=== PATIENT | female | born 1990 | race Caucasian/White ===

== ENCOUNTER → 2016-09-14 | Outpatient (CLI) | payer BC ==
--- NOTE | 2016-09-14 10:34 | EKG ---
[address] [address] Measurements Intervals [place] Rate: 75 P: 60 AL: 178 QRS: 93 QRSD: 88 T: 17 QT: 381 QTc: 411 Interpretive Statements SINUS RHYTHM BORDERLINE RIGHT AXIS DEVIATION No previous ECG available for comparison Electronically Signed On 09-14-16 16:03:55 MDT by Pradeep Garrison [id number]
[2016-09-14 10:41] LABS: BASOPHILS # (AUTO) 0.03 10*3/UL; BASOPHILS % (AUTO) 0.6 % (0-1); EOSINOPHILS % (AUTO) 3.3 % (0-8); HEMATOCRIT 44.4 % (37.0-47.0); HEMOGLOBIN 15.2 g/dL (12.0-16.0); IMM GRAN % (AUTO) 0 % (0-5); IMM GRAN# (AUTO) 0 10*3/UL; LYMPHOCYTES # (AUTO) 1.55 10*3/uL; LYMPHOCYTES % (AUTO) 32.2 % (10-50); MEAN CORPUSCULAR HEMOGLOBIN 32.4 PG (27-31); MEAN CORPUSCULAR HGB CONC 34.2 g/dL (33-37); MEAN PLATELET VOLUME 10.1 FL (7.4-12.2); MONOCYTES # (AUTO) 0.51 10*3/UL (0.3-0.8); MONOCYTES % (AUTO) 10.6 % (5-15); NEUTROPHILS # (AUTO) 2.57 10*3/UL; NEUTROPHILS % (AUTO) 53.3 % (50-80); RDW COEFFICIENT OF VARIATION 12.1 % (11.5-14.5); RED BLOOD COUNT 4.69 10^6/uL (4.20-5.40); WHITE BLOOD COUNT 4.82 10^3/uL (4.8-10.8)
[2016-09-14 10:44] LABS: PLATELET MORPHOLOGY COMMENT NORMAL MORPHOLOGY (NORM)
[2016-09-14 11:05] LABS: ASPARTATE AMINO TRANSFERASE 39 IU/L (8-39); BILIRUBIN,TOTAL 1.1 mg/dL (0.3-1.2); BLOOD UREA NITROGEN 14 mg/dL (7-22); CALCIUM 9.6 mg/dL (8.7-10.7); CHLORIDE 103 meq/L (98-112); CREATININE 0.7 mg/dL (0.50-1.20); EST GLOMERULAR FILTRATION > 60 (>60 ml/min/1.73m(2)); GLUCOSE 98 mg/dL (78-110); POTASSIUM 4.4 meq/L (3.8-5.2); SODIUM 141 meq/L (135-145); TOTAL PROTEIN 8.2 g/dL (6.1-8.0)
[2016-09-14 11:17] LABS: CREATINE KINASE MB 0.24 NG/ML (0.00-5.00)
--- NOTE | 2016-09-14 11:22 | DI ---
PA /LATERAL CHEST X-RAY, 09/14/2016 10:17 AM : Clinical History: Pleuritic chest pain. Previous Exam: None at this facility. There is no acute soft tissue or bony abnormality. Heart size is normal. Lungs are clear. Mediastinal structures are normal. There are no pulmonary nodules. Reading: Normal chest x-ray.
[2016-09-14 11:34] LABS: TROPONIN I < 0.012 ng/mL (< 0.040)
== END ==
LOC: MOB LAB 10:19
PROVIDERS: ATTEND Physician Assistant
DX: R07.81 Pleurodynia (principal); R06.02 Shortness of breath; R07.9 Chest pain, unspecified
CPT/HCPCS: 36415; 71020; 80053; 82553; 84484; 85025; 85379; 93005; 93010

== ENCOUNTER 2016-11-17 22:52 | Emergency (ER) | payer BC ==
[2016-11-17] MEDS ORDERED: NORMAL SALINE 10 ML SYRINGE FLUSH IVP PRN (23:01)
[2016-11-17] MEDS ORDERED: HYDROcodone-APAP 5 MG -325 MG TABLET PO ONE (23:01)
[2016-11-17] MEDS ORDERED: KETOROLAC 15 MG/1 ML VIAL IVP ONE (23:01)
[2016-11-17] MEDS ORDERED: cefTRIAXone Inj 1 GM in Sodium Chloride 0.9% 100 ML IV ONE (23:02)
[2016-11-17 23:07] VITALS: RESP 18; TEMP 97
[2016-11-17] MEDS ORDERED: Sodium Chloride 0.9% 1,000 ML PRIMARY IV ONE (23:26)
[2016-11-17 23:33] LABS: BASOPHILS # (AUTO) 0.04 10*3/UL; BASOPHILS % (AUTO) 0.5 % (0-1); EOSINOPHILS # (AUTO) 0.27 10*3/UL; EOSINOPHILS % (AUTO) 3.4 % (0-8); HEMATOCRIT 43.9 % (37.0-47.0); MEAN CORPUSCULAR HEMOGLOBIN 32.6 PG (27-31); MEAN CORPUSCULAR HGB CONC 34.2 g/dL (33-37); MEAN CORPUSCULAR VOLUME 95.4 FL (81-99); MEAN PLATELET VOLUME 10.2 FL (7.4-12.2); MONOCYTES # (AUTO) 0.81 10*3/UL (0.3-0.8); MONOCYTES % (AUTO) 10.2 % (5-15); NEUTROPHILS # (AUTO) 4.58 10*3/UL; NEUTROPHILS % (AUTO) 57.8 % (50-80)
[2016-11-17 23:35] LABS: PLATELET MORPHOLOGY COMMENT NORMAL MORPHOLOGY (NORM); RBC MORPHOLOGY COMMENT NORMAL MORPHOLOGY (NORM); WBC MORPHOLOGY COMMENT NORMAL MORPHOLOGY (NORM)
[2016-11-17 23:50] LABS: BUN/CREATININE RATIO 11.42 (6-20); C-REACTIVE PROTEIN 0.6 mg/dL (0.0-0.9); CALCIUM 9.1 mg/dL (8.7-10.7); EST GLOMERULAR FILTRATION > 60 (>60 ml/min/1.73m(2))
[2016-11-18] MEDS ORDERED: HYDROcodone-APAP 5 MG -325 MG TABLET PO SCH (00:15)
--- NOTE | 2016-11-18 00:20 | PDOC ---
Sore Throat/Dental Pain HPI - General Chief Complaint: Nasal/Mouth Problem /Injury Stated Complaint: Dental Pain Date Seen by Provider: 11/17/16 Time Seen by Provider: 22:55 Source: POSITIVE: Patient Exam Limitations: POSITIVE: No limitations, Clinical condition Nurse's Notes Reviewed & Considered: Yes - History of Present Illness Initial Comments: The patient is a 26-year-old female who presents to the emergency room with increased right upper molar pain and swelling. She has been having issues with the right upper molar for the past several days. She saw the dentist yesterday and needs a root canal. She has been referred to an gambreler helper. She was started on clindamycin yesterday. Over the past couple of hours she has noticed increased pain and increased swelling to the referral of her mouth primarily. She denies any fevers or chills, difficulty swallowing or any other associated complaints. - Patient Home Medications Home Medications: Home Medications Esomeprazole Magnesium [Nexium] 40 mg PO DAILY #30 cap 02/28/16 Valacyclovir HCl [Valtrex] 2,000 mg PO BID #16 tab 02/28/16 Albuterol Sulfate [Proair Hfa] 1 - 2 puff INH Q4-6H #1 inhaler 09/14/16 Clindamycin HCl 300 mg PO TID 11/17/16 HYDROcodone/APAP 5/325 Tab [[place] 5/325 Tab] 1 - 2 each PO Q6H PRN #15 tablet - Patient Allergies Allergies/Adverse Reactions: Allergies Allergy/AdvReac Type Severity Reaction Status Date / Time Penicillins AdvReac HIVES Verified 11/17/16 22:57 Sulfa (Sulfonamide AdvReac HIVES Verified 11/17/16 22:57 Antibiotics) Past Medical History - heen HEENT History: Denies History Cardiovascular History: Denies History Respiratory History: Denies History Gastrointestinal History: Denies History Genitourinary History: Kidney Stones Endocrine History: Denies History Musculoskeletal History: Denies History Prosthesis or Implant: No Neurological History: Denies History Blood Disorders: Denies History Psychiatric History: Denies History Female Reproductive History: Denies History Obstetrical History: Denies History Cancer History: Denies History In Past Year Been Physically Harmed or Verbally Threatened: No History of MDRO: No Tobacco Use: Never Smoker Alcohol Use: Rarely Substance Use Type: None Previous Surgical History: Yes Type / Date of Surgery: appendectomy. kidney stones removed Significant Family History: No pertinent family hx Past Medical History Reviewed: Reviewed - No Changes ROS - Limitations ROS Limitations: No Limitations Constitution: REPORTS: Chills, Fever Cardiovascular: REPORTS: Denies Cardiac Symptoms Respiratory: REPORTS: Denies Resp Symptoms Neurological: REPORTS: Denies Neuro Symptoms Sore Throat/Dental Pain Exam - General Appearance General Appearance: REPORTS: Alert, Cooperative, No Acute Distress - HEENT Head / Face: POSITIVE: No Facial Swelling Eyes: POSITIVE: Inspection Normal Ears: POSITIVE: Ears Normal Inspection Nose: POSITIVE: Inspection Normal Neck: POSITIVE: Supple. NEGATIVE: Lymphadenopathy Dental: POSITIVE: Other (She has a right upper molar that has some surrounding erythema and swelling, the swelling does extend to the referral of her mouth) - Respiratory Respiratory: REPORTS: No Respiratory Distress, Breath Sounds Normal - Cardiovascular Cardiovascular: REPORTS: Regular Rate and Rhythm, Heart Sounds Normal Sore Throat/Dental Progress - Results Reviewed by me Lab Results Reviewed: Yes Lab Results:: Laboratory Results 11/17/16 Range/Units 23:20 WBC 7.93 (4.8-10.8) 10^3/uL RBC 4.60 (4.20-5.40) 10^6/uL Hgb 15.0 (12.0-16.0) g/dL Hct 43.9 (37.0-47.0) % MCV 95.4 (81-99) FL MCH 32.6 H (27-31) PG MCHC 34.2 (33-37) g/dL RDW Std Deviation 41.9 (39-50) fL RDW Coeff of Krystin 12.3 (11.5-14.5) % Plt Count 333 (140-350) 10*3/uL MPV 10.2 (7.4-12.2) FL Immature Gran % (Auto) 0.4 (0-5) % Neut % (Auto) 57.8 (50-80) % Lymph % (Auto) 27.7 (10-50) % [place] % (Auto) 10.2 (5-15) % Eos % (Auto) 3.4 (0-8) % Baso % (Auto) 0.5 (0-1) % Immature Gran # (Auto) 0.03 10*3/UL Neut # (Auto) 4.58 10*3/UL Lymph # (Auto) 2.20 10*3/uL [place] # (Auto) 0.81 H (0.3-0.8) 10*3/UL Eos # (Auto) 0.27 10*3/UL Baso # (Auto) 0.04 10*3/UL WBC Morphology Comment Normal morphology (NORM) Plt Morphology Comment Normal morphology (NORM) RBC Morph Comment Normal morphology (NORM) Sodium 146 H (135-145) meq/L Potassium 4.2 (3.8-5.2) meq/L Chloride 106 (98-112) meq/L Carbon Dioxide 26 (23-33) meq/L Anion Gap 14 (5-20) BUN 8.0 (7-22) mg/dL Creatinine 0.7 (0.50-1.20) mg/dL Estimated GFR > 60 (>60 ml/min/1.73m(2)) BUN/Creatinine Ratio 11.42 (6-20) Glucose 86 (78-110) mg/dL Calculated Osmolality 298.0 H (267-292) mOsm/kg Calcium 9.1 (8.7-10.7) mg/dL C-Reactive Protein 0.6 (0.0-0.9) mg/dL - Patient's Progress MDM / ED Course: An IV was established and the patient did receive Toradol 15 mg IV as well as [place] by mouth for pain. She did have significant pain relief. She also received a dose of Rocephin 1 g IV which she tolerated well. At this time she is advised to continue the clindamycin as previously prescribed. She will continue ibuprofen as needed for pain or swelling. In addition she was given [place] as needed for pain/swelling. She is advised return if any increased swelling or pain, difficulty swallowing, any worsening or change in symptoms. She will follow-up with her dentist as scheduled tomorrow. - Consult Counseled: POSITIVE: Patient, Family, RE: Lab Results, RE: DX, RE: Need for F/U Patient Care Time - Estimated PCT Patient Care Time (In Minutes): 20 Vital Signs - Recent Vital Signs Vital Signs: Vital Signs (Last 8 hours) Temp Pulse Resp BP Pulse Ox 11/17/16 22:55 97.0 F 81 18 126/111 97 - VS Reviewed Vital Signs Reviewed: Yes Discharge Clinical Impression: Dental abscess Discharge Disposition: Discharged to Home Condition: Stable Prescriptions / Orders: HYDROcodone/APAP 5/325 Tab [[place] 5/325 Tab] 1 - 2 each PO Q6H PRN #15 tablet PRN Reason: Pain Patient Instructions Given at Discharge: Dental Abscess (ED) Additional Instructions: Continue clindamycin as previously prescribed. Continue ibuprofen 600 mg every 6 hours as needed for pain. We have been prescribed [place] 5/325 which he can take one or 2 every 6 hours as needed for pain. Follow-up with the gambreler helper tomorrow as previously scheduled. Return to the emergency room if increased pain or swelling, difficulty swallowing, any worsening or change in symptoms. Follow Up With: SHAYNE TANG [Primary Care Provider] -
[2016-11-18] MEDS ORDERED: Sodium Chloride 0.9% 1,000 ML ONE (01:14)
== END 2016-11-18 00:20 | disposition home or self-care (01) ==
LOC: ER 22:52
DX: K04.7 Periapical abscess without sinus (principal); K08.89 Other specified disorders of teeth and supporting structures
CPT/HCPCS: 80048; 85025; 86140; 96365; 96375; 99282; 99283; J0696; J1885; J7030; J7050